=== PATIENT | male | born 1970 | race Caucasian/White ===

== ENCOUNTER → 2017-11-07 09:09 | Outpatient (CLI) | payer BC, SELFPAY ==
[2017-11-07 12:38] LABS: Absolute Lymphocyte Count 2.33 X10^3/ul (0.83-4.51); Absolute Neutrophil Count 5.1 X10^3/uL (2.0-7.7); Basophil# 0.04 X10^3/uL; Basophil% 0.5 % (0-1); Eosinophil# 0.18 X10^3/uL; Eosinophils% 2.2 % (0-5); Hemoglobin 15.1 g/dl (13.0-16.5); Lymphocyte # 2.33 X10^3/ul (4.0); Lymphocyte % 27.9 % (19-41); Mean Corp Hgb Conc 34.3 g/gl (32-36); Mean Corpuscular Hgb 30.3 pg (27.0-32.0); Mean Corpuscular Volume 88.2 fL (80-94); Mean Platelet Vol. 11.6 fl (6.2-12.0); Monocyte# 0.66 X10^3/uL; Monocyte% 7.9 % (0-10); POSITIVE COUNT NO; POSITIVE DIFFERENTIAL NO; POSITIVE MORPHOLOGY NO; Platelet Count 265 K/mm3 (150-450); RBC Distribution Width SD 44.3 fl (35.1-43.9); Red Blood Count 4.99 M/mm3 (4.6-6.2); White Blood Count 8.4 K/mm3 (4.4-11.0)
[2017-11-07 12:54] LABS: AST(SGOT) 18 U/L (15-37); Alanine Aminotransfer ALT/SGPT 46 U/L (16-61); Albumin, Serum 3.8 g/dL (3.2-5.0); Alkaline Phosphatase 83 U/L (45-117); Anion Gap 4 (5-15); BUN 18 mg/dL (7-18); BUN/Creat Ratio 16.7 RATIO (10-20); Calcium,Total 8.8 mg/dL (8.5-10.1); Chloride 106 mmol/L (98-107); Creatinine, Serum 1.08 mg/dL (0.70-1.30); EST Glomerular Filtration Rate 77 mL/min (>60); Est Glom Filt Rate - Afr Amer 94 mL/min (>60); Glucose 94 mg/dL (74-106); Potassium 4.2 mmol/L (3.5-5.1); Protein, Total 7.8 g/dL (6.4-8.2); Sodium Level 140 mmol/L (136-145); Thyroid Stim Hormone (TSH) 1.16 uIU/mL (0.358-3.74)
== END ==
PROVIDERS: Family Provider Family Medicine Geriatric Medicine; PCP Family Medicine Geriatric Medicine; Visit Provider Family Medicine Geriatric Medicine
DX: I10 Essential (primary) hypertension (principal)
CPT/HCPCS: 36415; 80053; 84443; 85025

== ENCOUNTER → 2018-11-10 08:48 | Outpatient (CLI) | payer BC, SELFPAY | LOC: POLAB3 08:49 → LAB.FUTURE 10:53 | PROVIDERS: Family Provider Family Medicine Geriatric Medicine; PCP Family Medicine Geriatric Medicine; Visit Provider Family Medicine Geriatric Medicine | DX: I10 Essential (primary) hypertension (principal) ==

== ENCOUNTER 2024-01-07 08:45 | Day surgery (SDC) | payer OTHER, SELFPAY ==
--- NOTE | 2024-01-07 09:16 | PCM.PRE.AN2 ---
ASA Classification* ASA Classification ASA Classification: 3 Assessment & Plan Anesthesia* Anesthesia Assessment Anesthesia Assessment: Discussed sedation and/or anesthesia options, risks, benefits, and alternatives with patient/parents/legal guardian/POA. Questions invited. The patient/parents/legal guardian/POA seems to understand and agrees to proceed with anesthesia plan. Reviewed the physical assessment, medical history, allergy history and patient home medications list prior to surgery/procedure/anesthetic and documented any changes. Performed airway and anesthesia risk assessments. Anesthesia Type Anesthesia Type: MAC (see written pre anesthesia record for full assessment) Anesthesia Focused Assessment* Airway Assessment Mouth opens: >3 cm Mallampati Score: III Focused Labs Anesthesia Preop lab: CBC WBC 8.4 K/mm3 (4.4-11.0) 11/07/17 09:14 RBC 4.99 M/mm3 (4.6-6.2) 11/07/17 09:14 Hgb 15.1 g/dl (13.0-16.5) 11/07/17 09:14 Hct 44.0 % (40-54) 11/07/17 09:14 Plt Count 265 K/mm3 (150-450) 11/07/17 09:14 CHEMISTRY Potassium 4.2 mmol/L (3.5-5.1) 11/07/17 09:14 Sodium 140 mmol/L (136-145) 11/07/17 09:14 BUN 18 mg/dL (7-18) 11/07/17 09:14 Creatinine 1.08 mg/dL (0.70-1.30) 11/07/17 09:14 Glucose 94 mg/dL (74-106) 11/07/17 09:14 TSH 1.16 uIU/mL (0.358-3.74) 11/07/17 09:14 COAG Pre-Assessment Diagnosis/Proposed Procedure Planned Operative Procedure(s): COLONOSCOPY-OA Anesthesia History 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 When Was Last Pacemaker Check QUESTION #4 FULL TEXT: You/Your Family Experience fever (hyperthermia) with Anesthesia Last Oral Intake Last Oral intake: Last Oral Intake NPO since Meds taken in AM with sips of water? Meds patient instructed to take am of surgery PONV PONV - accountant manager: PONV - accountant manager Female No 01/03/24 12:37 HX of Motion Sickness No 01/03/24 12:37 HX of N/V After Surgery No 01/03/24 12:37 Non-Smoker Yes 01/03/24 12:37 Duration of Surgery greater No 01/03/24 12:37 than 60 minutes Number of Risk Factors 1 01/03/24 12:37 PONV Score Low Risk 01/03/24 12:37 Height & Weight Height & Weight: Anesthesia: Height & Weight Height 6 ft 1 in 12/10/23 14:27 Respiratory Assessment Respiratory Assessment - accountant manager: Respiratory Tract Infection Hx - accountant manager Hx Respiratory Tract Infection No 01/03/24 12:37 STOP Sleep Apnea STOP Sleep Apnea - accountant manager: STOP Sleep Apnea - accountant manager Hx Hypertension Yes: CONTROLLED ON MED 01/03/24 12:37 Hx Sleep Apnea No 01/03/24 12:37 CPAP BIPAP Do you snore loudly (louder No 01/03/24 12:37 than talking or can be heard Do you often feel tired/ No 01/03/24 12:37 fatigued/ sleepy during daytime? Has anyone observed you stop No 01/03/24 12:37 breathing during sleep? STOP Results Negative 01/03/24 12:37 QUESTION #5 FULL TEXT : Do you snore loudly (louder than talking or can be heard through closed doors)? 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 Specify any problems Hx of Preganancy in last 3 N/A 01/03/24 12:37 Months Nurse Filling Out Transfusion VCHRISTIN 01/03/24 12:37 & Questions: Date: 01/03/24 01/03/24 12:37 Time: 12:38 01/03/24 12:37 Patient unable to answer at this time (ie. confused, unrespo /Reproduction History /Reproductive History - accountant manager: /Reproductive Hx- accountant manager Hx Now Gestational Age (in weeks): EDC: Hx Hx Para Hx Section SAB Active Medications Active Medications: Current Medications Generic Name Dose Route Start Last Admin Trade Name Freq PRN Reason Stop Dose Admin Lactated Ringer's 1,000 mls @ 15 mls/hr 01/07/24 09:00 IV .Q48H AMINAH PFSH Medical History Wears glasses Anemia Heartburn Chewing tobacco dependence Chronic cough Hypertension Home Medications ?Medication ?Instructions ?Recorded ?Last Taken ?Type albuterol sulfate 90 mcg/actuation 1 puff inhalation PRN 12/10/23 Unknown History aerosol inhaler atenolol 25 mg tablet 25 mg PO QDAY 12/10/23 01/07/24 History ferrous sulfate 325 mg (65 mg 325 mg PO BID 12/10/23 01/03/24 History iron) tablet lisinopril 10 mg tablet 10 mg PO QDAY 12/10/23 01/07/24 History Lactobacillus acidophilus 10 100 mmu cells PO DAILY 01/03/24 01/06/24 History billion cell capsule (NewFlora) aspirin 81 mg capsule 81 mg PO DAILY 01/03/24 01/03/24 History multivitamin (Daily Multi-Vitamin 1 tab PO DAILY 01/03/24 01/06/24 History tablet) Allergy/AdvReac Type Severity Reaction Status Date / Time No Known Allergies Allergy Verified 01/07/24 09:13 Surgical History Hx of knee surgery Hx of tonsillectomy Hx of hernia repair Social History Smoking Status: Never smoker alcohol intake: never substance use type: does not use Review of Systems (Anesthesia) ROS Narrative System reviewed and no additional complaints, except as documented.
[2024-01-07] MEDS: Lactated Ringers 1,000 ML 15 ML IV (09:17)
[2024-01-07 09:18] VITALS: BP 123/84; PULSE 76; RESP 18; TEMP 36.6; O2SAT 98; BMI 35.9
--- NOTE | 2024-01-07 09:32 | HP.PCM_ITS ---
History and Physical Date of Admission: 01/07/24 Intake Vital Signs 12/09/2413:27 Height 6 ft 1 in Weight: 270 lb BMI 35.6 BP 117/74 Blood Pressure Location Rt brachial Position Sitting Respiration 18 Pulse 86 Pulse Source Monitor Temp 97.6 F L Temp Source Temporal Pulse Oximetry (%) 99 Oxygen Delivery Method room air Intake Visit Reasons: UPPER AND LOWER SCOPY, BLEEDING Chief Complaint: upper and lower scope, bleeding Accompanied by: Is patient in pain?: No Allergies No Known Allergies Allergy (Unverified 12/10/23 14:28) Medications ?Medication ?Instructions ?Recorded ?Confirmed ?Type albuterol sulfate 90 mcg/actuation inhalation 12/10/23 12/10/23 History aerosol inhaler atenolol 25 mg tablet 25 mg PO QDAY 12/10/23 12/10/23 History ferrous sulfate 325 mg (65 mg 325 mg PO BID 12/10/23 12/10/23 History iron) tablet lisinopril 10 mg tablet 10 mg PO QDAY 12/10/23 12/10/23 History Have you fallen in the past year?: No PFSH Social History (Updated 12/10/23 @ 14:27 by Nevin Francis LPN) Smoking Status: Never smoker alcohol intake: never substance use type: does not use HPI HPI HPI: Patient is a 53-year-old male here with GI bleeding and iron deficiency anemia. The patient reports that whenever he has heavy activity or lifts a lot of heavy stuff he will have a bloody bowel movement after. Patient denies any abdominal pain or nausea or vomiting. ROS General General: Yes fatigue; No weight change, appetite, colon cancer, breast cancer or weakness HEENT HEENT: No difficulty swallowing, eye injury, eye surgery, swollen glands or hoarseness Endo Endocrine: No thyroid disease, diabetes mellitus, thyroid cancer, Hair loss, heat intolerance or cold intolerance Skin Skin: No rash or changing moles Musc Musculoskeletal: Yes arthritis; No back problems, rheumatoid arthritis, gout or joint pain Cardio Cardiovascular: Yes high blood pressure; No murmur, pacemaker, heart disease, atrial fibrillation, heart attack, heart stent, palpitations, shortness of breat with exertion or chest pain Psych Psychiatric: No depression, anxiety or hearing voices Resp Respiratory: No shortness of breath, No sleep apnea, Yes cough, No COPD, No asthma, No emphysema and No wheezing Gastro Gastrointestinal: No abdominal pain, No nausea or vomiting, No diarrhea, No constipation, Yes blood in stool, Yes acid reflux, Yes hemorrhoids, No ulcers, N o gallbladder problem and No black,tarry stools Moy Hematologic: Yes blood thinners, No blood disorders, No bleeding, No anemia and No blood clots Additional Details: 81mg aspirin Neuro Neurologic: No numbness, No tingling and No weakness Exam Const General: cooperative Orientation: alert and oriented x3 HENWA Head: normal to inspection Neck Neck: normal visual inspection and full ROM Chest Chest palpation & inspection: normal inspection of the chest Resp Effort & Inspection: normal respiratory effort Auscultation: clear to auscultation bilaterally Cardio Rate: regular rate Rhythm: regular rhythm GI Inspection: non-distended Palpation: soft and nontender Skin General: no rashes or lesions noted Neuro General: patient alert and patient oriented x3 Extrem General: full ROM Psych Appearance: grossly normal Mental Status: mental status grossly normal Assessment and Plan Assessment and Plan (1) Iron deficiency anemia: Status: Acute Plan: Patient has iron deficiency anemia and has experienced some rectal bleeding. I recommend EGD and colonoscopy to evaluate. I explained endoscopy in detail to the patient. I explained the risks including but not limited to stroke or heart attack with anesthesia, perforation of the GI tract, bleeding, infection. I explained that any of these could necessitate further emergency surgery. The patient understands and all questions were answered sufficiently. The patient wishes to proceed with procedure. Anmol Romero MD Pager: [facility] [address] [place] [address], [address] [place] [id number] Office: I have examined the patient and the H&P has been reviewed. There are no clinical changes since date of exam.
[2024-01-07 10:05] VITALS: BP 123/84; BP 81/63; PULSE 73; RESP 16; TEMP 36.8; O2SAT 94
--- NOTE | 2024-01-07 10:05 | OP.EGD_ITS ---
Patient Name: Papito Robbins Procedure Date: 01/07/2024 9:41 AM Date of : 1970 Age: 53 Procedure: Upper GI endoscopy Indications: Iron deficiency anemia secondary to chronic blood loss Providers: Anmol Romero MD Medicines: Propofol per Anesthesia Patient Profile: This is a 53 year old male. Refer to note in patient chart for documentation of history and physical. Complications: No immediate complications. Procedure: Pre-Anesthesia Assessment: - Prior to the procedure, a History and Physical was performed, and patient medications and allergies were reviewed. The patient's tolerance of previous anesthesia was also reviewed. The risks and benefits of the procedure and the sedation options and risks were discussed with the patient. All questions were answered, and informed consent was obtained. Prior Anticoagulants: The patient has taken no anticoagulant or antiplatelet agents. After reviewing the risks and benefits, the patient was deemed in satisfactory condition to undergo the procedure. After obtaining informed consent, the endoscope was passed under direct vision. Throughout the procedure, the patient's blood pressure, pulse, and oxygen saturations were monitored continuously. The pediatric colonoscope was introduced through the mouth, and advanced to the second part of duodenum. The upper GI endoscopy was accomplished without difficulty. The patient tolerated the procedure well. Scope In: 9:48:21 AM Scope Out: 9:51:36 AM Total Procedure Duration Time 0 hours 3 minutes 15 seconds Findings: The esophagus was normal. The stomach was normal. The examined duodenum was normal. Impression: - Normal esophagus. - Normal stomach. - Normal examined duodenum. - No specimens collected. Recommendation: - Discharge patient to home. - Resume previous diet. - Continue present medications. Procedure Code(s): --- Professional --- 81643, Esophagogastroduodenoscopy, flexible, transoral; diagnostic, including collection of specimen(s) by brushing or washing, when performed (separate procedure) Diagnosis Code(s): --- Professional --- D50.0, Iron deficiency anemia secondary to blood loss (chronic) CPT copyright 2021 [employer]. All rights reserved. The codes documented in this report are preliminary and upon professional fee coder review may be revised to meet current compliance requirements. Anmol Romero MD 01/07/2024 10:04:42 AM This report has been signed electronically. Number of Addenda: 0 Note Initiated On: 01/07/2024 9:41 AM
--- NOTE | 2024-01-07 10:05 | OP.CCLET_ITS ---
01/07/2024 Jose Rafael Bernard Re : Upper GI endoscopy procedure for Papito Robbins Dear Oj This procedure was performed on Sunday, January 07, 2024. My impressions and recommendations are as follows: Impressions : - Normal esophagus. - Normal stomach. - Normal examined duodenum. - No specimens collected. Recommendations : - Discharge patient to home. - Resume previous diet. - Continue present medications. My findings are described in the full procedure note, which is enclosed. If I can be of further assistance, please feel free to contact me at Doctor phone number(s): , Work: . Sincerely, Anmol Romero MD 01/07/2024 10:04:42 AM This report has been signed electronically.
--- NOTE | 2024-01-07 10:08 | OP.COLON_ITS ---
Patient Name: Papito Robbins Procedure Date: 01/07/2024 9:51 AM Date of : 1970 Age: 53 Procedure: Colonoscopy Indications: Rectal bleeding Providers: Anmol Romero MD Medicines: Propofol per Anesthesia Patient Profile: This is a 53 year old male. Refer to note in patient chart for documentation of history and physical. Last Colonoscopy: none. The patient's first colonoscopy is today. Complications: No immediate complications. Estimated blood loss: Minimal. Procedure: Pre-Anesthesia Assessment: - Prior to the procedure, a History and Physical was performed, and patient medications and allergies were reviewed. The patient's tolerance of previous anesthesia was also reviewed. The risks and benefits of the procedure and the sedation options and risks were discussed with the patient. All questions were answered, and informed consent was obtained. Prior Anticoagulants: The patient has taken no anticoagulant or antiplatelet agents. After reviewing the risks and benefits, the patient was deemed in satisfactory condition to undergo the procedure. - Prior to the procedure, a History and Physical was performed, and patient medications and allergies were reviewed. The patient's tolerance of previous anesthesia was also reviewed. The risks and benefits of the procedure and the sedation options and risks were discussed with the patient. All questions were answered, and informed consent was obtained. Prior Anticoagulants: The patient has taken no anticoagulant or antiplatelet agents. ASA Grade Assessment: II - A patient with mild systemic disease. After reviewing the risks and benefits, the patient was deemed in satisfactory condition to undergo the procedure. After I obtained informed consent, the scope was passed under direct vision. Throughout the procedure, the patient's blood pressure, pulse, and oxygen saturations were monitored continuously. The pediatric colonoscope was introduced through the anus and advanced to the cecum, identified by appendiceal orifice and ileocecal valve. The colonoscopy was performed without difficulty. The patient tolerated the procedure well. The quality of the bowel preparation was good. The ileocecal valve, appendiceal orifice, and rectum were photographed. Scope In: 9:53:55 AM Scope Withdrawal Time 0 hours 6 minutes 11 seconds Scope Out: 10:02:21 AM Total Procedure Duration Time 0 hours 8 minutes 26 seconds Findings: Hemorrhoids were found on perianal exam. External and internal hemorrhoids were found during perianal exam. The hemorrhoids were severe. Impression: - Hemorrhoids found on perianal exam. - External and internal hemorrhoids. - No specimens collected. Recommendation: - Discharge patient to home. - Resume previous diet. - Continue present medications. - Repeat colonoscopy in 10 years for screening purposes. - Refer to a colo-rectal surgeon at appointment to be scheduled. Procedure Code(s): --- Professional --- 71595, Colonoscopy, flexible; diagnostic, including collection of specimen(s) by brushing or washing, when performed (separate procedure) Diagnosis Code(s): --- Professional --- K64.8, Other hemorrhoids K62.5, Hemorrhage of anus and rectum CPT copyright 2021 [employer]. All rights reserved. The codes documented in this report are preliminary and upon chemical cell changer review may be revised to meet current compliance requirements. Anmol Romero MD 01/07/2024 10:07:31 AM This report has been signed electronically. Number of Addenda: 0 Note Initiated On: 01/07/2024 9:51 AM
--- NOTE | 2024-01-07 10:08 | OP.CCLET_ITS ---
01/07/2024 Jose Rafael Bernard Re : Colonoscopy procedure for Papito Robbins Dear Oj This procedure was performed on Sunday, January 07, 2024. My impressions and recommendations are as follows: Impressions : - Hemorrhoids found on perianal exam. - External and internal hemorrhoids. - No specimens collected. Recommendations : - Discharge patient to home. - Resume previous diet. - Continue present medications. - Repeat colonoscopy in 10 years for screening purposes. - Refer to a colo-rectal surgeon at appointment to be scheduled. My findings are described in the full procedure note, which is enclosed. If I can be of further assistance, please feel free to contact me at Doctor phone number(s): , Work: . Sincerely, Anmol Romero MD 01/07/2024 10:07:31 AM This report has been signed electronically.
--- NOTE | 2024-01-07 10:09 | PCM.POST.ANE ---
Anesthesia: Postop Eval I Current Vital Signs Temperature: 98.2 F Pulse Rate: 74 Blood Pressure: 81/63 Respiratory Rate: 14 Pulse Ox: 96 Oxygen Delivery Method: Room Air Assessment Airway patent: Yes Spontaneous unlabored respirations: Yes Mental status: Awake and Calm nausea: No Vomiting: No Anesthesia Complication: No Fluid Hydration Crystalloid volume administer (ml): 700 Total IV fluid infused: 700 Progress Note Anesthesia document: Postop Eval 1 completed: Yes
[2024-01-07 10:10] VITALS: BP 123/84; BP 81/63; BP 82/63; PULSE 73; PULSE 74; RESP 14; RESP 16; TEMP 36.8; O2SAT 94; O2SAT 96
[2024-01-07 10:15] VITALS: BP 123/84; BP 92/66; PULSE 72; RESP 16; O2SAT 93
[2024-01-07 10:20] VITALS: BP 123/84; BP 91/49; PULSE 70; RESP 16; TEMP 36.6; O2SAT 93
[2024-01-07 10:42] VITALS: BP 123/84
--- NOTE | 2024-01-07 11:32 | PCM.POSTANE2 ---
Anesthesia Postop Eval I Sum Postop Eval Completion status Anesthesia document: Postop Eval 1 completed: Yes Anesthesia Postop Eval I Summary Anesthesia Postop Eval I Summary: Anesthesia Postop Eval I: Assessment Summary Airway patent Yes 01/07/24 10:10 [email or web address] Spontaneous unlabored Yes 01/07/24 10:10 [email or web address] respirations Mental status Awake,Calm 01/07/24 10:10 [email or web address] nausea No 01/07/24 10:10 [email or web address] Vomiting No 01/07/24 10:10 [email or web address] Anesthesia Postop Eval I: Fluid Summary Crystalloid volume administer 700 01/07/24 10:10 [email or web address] (ml) Colloids volume administered ( ml) Blood Product volume administered (ml) Total IV fluid infused 700 01/07/24 10:10 [email or web address] Anesthesia Postop Eval I: Summary Notes Anesthesia Complication No 01/07/24 10:10 [email or web address] Anesthesia Complication Comment: Post-operative progress note Anesthesia: Postop Eval II Evaluation Mental status: Awake and Calm Pain Level: 0 nausea: No Vomiting: No Complications Anesthesia Complication: No
== END 2024-01-07 10:47 | disposition home or self-care (01) ==
LOC: EN 08:48 → AC 08:54
PROVIDERS: PCP Physician Assistant; Referring Provider Surgery; Visit Provider Surgery
PROC: 0DJD8ZZ Inspection of Lower Intestinal Tract, Via Natural or Artificial Opening Endoscopic (ICD-10-PCS; CPT 45378; principal; 2024-01-07 09:40)
DX: D50.0 Iron deficiency anemia secondary to blood loss (chronic) (principal); K64.4 Residual hemorrhoidal skin tags; K64.8 Other hemorrhoids; K62.5 Hemorrhage of anus and rectum; I10 Essential (primary) hypertension; F17.220 Nicotine dependence, chewing tobacco, uncomplicated; Z79.899 Other long term (current) drug therapy
CPT/HCPCS: 43235; 45378; J7120; J2405